=== PATIENT | female | born 1995 | race Caucasian/White ===

== ENCOUNTER 2017-01-18 20:20 | Observation (INO) | payer SELFPAY | END 2017-01-18 22:15 | disposition home or self-care (01) | LOC: L&D 20:20 | PROVIDERS: ADMIT Specialist; ATTEND Specialist | DX: O26.853 Spotting complicating pregnancy, third trimester (principal); Z3A.29 29 weeks gestation of pregnancy | CPT/HCPCS: 76805; 76818; 99281; G0378 ==